=== PATIENT | female | born 2000 | race Caucasian/White ===

== ENCOUNTER 2025-03-21 08:28 | Day surgery (SDC) | payer OTHER ==
[~2025-03-21 08:28] MED LIST: Acetaminophen 500 MG TAB PO SCH
[2025-03-21] MEDS ORDERED: Acetaminophen 500 MG TAB ONE (08:40)
[2025-03-21] MEDS: Acetaminophen 500 MG TAB PO SCH (08:41)
[2025-03-21 13:47] VITALS: TEMP 98.3
[2025-03-21 13:50] VITALS: BP 106/56
== END 2025-03-21 14:20 | disposition home or self-care (01) ==
LOC: ONC/OP 08:28
PROVIDERS: ATTEND Family Medicine
DX: O99.013 Anemia complicating pregnancy, third trimester (principal); O34.219 Maternal care for unspecified type scar from previous cesarean delivery; O09.893 Supervision of other high risk pregnancies, third trimester; O09.43 Supervision of pregnancy with grand multiparity, third trimester; Z3A.29 29 weeks gestation of pregnancy; Z88.0 Allergy status to penicillin; Z79.899 Other long term (current) drug therapy
CPT/HCPCS: 96365; 96366; J1756; J7050